=== PATIENT | male | born 1985 | race Two or more races ===

== ENCOUNTER 2021-04-19 09:24 | Emergency (ER) | payer SELFPAY ==
[~2021-04-19] VITALS: Ht 180.3 cm; Wt 107.5 kg
[2021-04-19] MEDS ORDERED: ACETAMINOPHEN 500 MG TAB PO ONE (10:15)
[2021-04-19 10:50] LABS: Urine Bacteria NONE SEEN /hpf (None Seen); Urine Blood 3+ /uL (Negative); Urine Specific Gravity 1.031 (1.001-1.035); Urine WBC 2 /hpf (0 - 3)
[2021-04-19 11:12] VITALS: BP 130/79
== END 2021-04-19 11:19 | disposition home or self-care (01) ==
LOC: ER 09:24
DX: M79.10 Myalgia, unspecified site (principal); R31.9 Hematuria, unspecified; Z20.822 Contact with and (suspected) exposure to COVID-19
CPT/HCPCS: 36415; 71045; 81001; 87426